=== PATIENT | male | born 1980 | race Two or more races ===

== ENCOUNTER 2018-01-03 22:36 | Emergency (ER) | payer BC ==
[~2018-01-03] VITALS: Ht 177.8 cm; Wt 97.5 kg
[~2018-01-03 22:36] MED LIST: NKM
[2018-01-03] MEDS ORDERED: Methocarbamol 750mg tab ORAL ONE (22:45)
[2018-01-03] MEDS ORDERED: LIDOCAINE700 M1 TP (22:49)
[2018-01-03] MEDS ORDERED: ROBAXIN-750750 MG PO (22:49)
[2018-01-03] MEDS ORDERED: IBUPROFEN600 MG ORAL (22:49)
--- NOTE | 2018-01-03 22:51 | Emergency Room Report ---
History of Present Illness General Chief Complaint: Pain Source: Patient Present Illness HPI 37-year-old male with pmhx of sciatica p/w back pain for 2 days. Pain is localized to L lower back, sharp in nature, radiating down leg. Movement worsens pain. There are no alleviating factors. Patient took pain medications with minimal relief. Patient has experienced this similar pain in the past. Denies trauma. Denies lower extremity weakness/numbness, no bowel/bladder retention or incontinence, saddle anesthesia. Denies fever, chills, abdominal pain, n/v, dysuria/hematuria. No history of IVDA Allergies: Coded Allergies: No Known Allergies (Unverified , 08/03/16) Patient History Past Medical History: see triage record Past Surgical History: none Pertinent Family History: none Reviewed Nursing Documentation: PMH: Agreed; PSxH: Agreed Review of Systems All Other Systems: negative except mentioned in HPI Physical Exam Vital Signs Date Time Temp Pulse Resp B/P (MAP) Pulse Ox O2 Delivery O2 Flow Rate FiO2 01/03/18 22:39 98.2 99 18 135/93 98 Room Air 98.2 Sp02 EP Interpretation: reviewed, normal General Appearance: alert, GCS 15, non-toxic, mild distress Head: normocephalic, atraumatic Eyes: bilateral eye normal inspection, bilateral eye PERRL, bilateral eye EOMI ENT: normal ENT inspection, normal pharynx, normal voice, moist mucus membranes Neck: normal inspection, full range of motion, supple Respiratory: normal inspection, lungs clear, normal breath sounds, no respiratory distress, no retraction, no wheezing, speaking full sentences, chest symmetrical Cardiovascular #1: normal inspection, regular rate, rhythm, no edema, normal capillary refill Cardiovascular #2: 2+ radial (R), 2+ radial (L) Gastrointestinal: normal inspection, non tender, soft, non-distended, no guarding Genitourinary: no CVA tenderness Musculoskeletal: other - Left sided lower lumbar paraspinal tenderness, no midline tenderness, full range of motion all extremities Neurologic: normal inspection, alert, oriented x3, responsive, motor strength/ tone normal, sensory intact, normal gait, speech normal Psychiatric: normal inspection, judgement/insight normal, memory normal Skin: normal inspection, normal color, no rash, warm/dry, well hydrated, normal turgor Medical Decision Making Diagnostic Impression: Primary Impression: Back pain ER Course 37-year-old male p/w back pain DDX: Likely musculoskeletal back pain vs. muscular strain vs. sciatica Lumbar fracture is unlikely given patients age, no midline tenderness, no history of trauma, and that patient is ambulatory. Therefore, at this time no imaging is indicated Serious diagnoses such as cord compression, epidural abscess is unlikely in this patient given the clinical scenario and abscess of neurological symptoms or findings. Patient appears nontoxic. Plan: Pain control ER course: Patient has remained nontoxic appearing and ambulatory in the ED. Pain improved w/ medications Disposition: Patient will be discharged to home with prescription of motrin and lidocaine patch and robaxin. Patient cautioned of the effects of robaxin including possible impairment of physical or mental abilities. Patient was instructed to refrain from operating machinery or driving. Patient is also cautioned on the GI effects of motrin and to take sparingly. Patient verbalized understanding. Strict precautions discussed with patient on when to emergently return to the ED which includes severe/worsening back pain, leg weakness/numbness, urinary retention/incontinence, fever or chills, which may indicate severe illness. Patient is to follow up with their PMD within 5 days. Patient agrees with plan. Please note that this Emergency Department Report was dictated using [employer] envelope maker hand technology software, occasionally this can lead to erroneous entry secondary to interpretation by the dictation equipment. Last Vital Signs Date Time Temp Pulse Resp B/P (MAP) Pulse Ox O2 Delivery O2 Flow Rate FiO2 01/03/18 22:39 98.2 99 18 135/93 98 Room Air 98.2 Disposition: HOME, SELF-CARE Condition: Improved Scripts Lidocaine (Lidocaine) 1 Each Adh..patch 700 MG TP EVERY 12 HOURS, #30 PATCH Prov: Niyah Wray M.D. 01/03/18 Ibuprofen* (MOTRIN*) 600 Mg Tablet 600 MG ORAL Q8H PRN for For Pain, #30 TAB 0 Refills Prov: Niyah Wray M.D. 01/03/18 Methocarbamol* (ROBAXIN-750*) 750 Mg Tablet 750 MG PO QID, #28 TAB 0 Refills Prov: Niyah Wray M.D. 01/03/18 Patient Instructions: Back Pain, Adult, [id number] Niyah Wray M.D. Jan 03, 2018 22:51
[2018-01-03 23:00] VITALS: BP 131/89
[2018-01-03] MEDS ORDERED: oxyCODONE HCL/Acetaminophen 5/325mg ORAL ONE (23:00)
[2018-01-03] MEDS ORDERED: Ketorolac 30mg Inj IM ONE (23:00)
[2018-01-03 23:35] VITALS: BP 131/89
== END 2018-01-03 23:35 | disposition home or self-care (01) ==
LOC: EMR 23:04
DX: M54.42 Lumbago with sciatica, left side (principal)
CPT/HCPCS: 96372; 99284; J1885

== ENCOUNTER 2018-01-05 09:40 | Emergency (ER) | payer BC ==
[~2018-01-05] VITALS: Ht 177.8 cm; Wt 97.5 kg
[~2018-01-05 09:40] MED LIST changes: +IBUPROFEN600 MG ORAL; +LIDOCAINE700 M1 TP; +ROBAXIN-750750 MG PO
[2018-01-05 10:08] VITALS: BP 148/68
[2018-01-05] MEDS ORDERED: NEURONTIN300 MG ORAL (10:36)
[2018-01-05] MEDS ORDERED: MEDROL4 M1 PO (10:37)
--- NOTE | 2018-01-05 10:41 | Emergency Room Report ---
History of Present Illness General Chief Complaint: Back Pain-No Injury Source: Patient Present Illness HPI 37-year-old male comes ER with sharp radiating left back pain relating to his left leg He reports he was here 2 days ago and was given muscle relaxants and ibuprofen without much relief He denies bowel bladder incontinence, denies weakness, fevers, IV drug use He does report that he's been unable to get comfortable and hasn't slept in today since this started Allergies: Coded Allergies: No Known Allergies (Unverified , 08/03/16) Patient History Past Medical History: see triage record Reviewed Nursing Documentation: PMH: Agreed; PSxH: Agreed Review of Systems All Other Systems: negative except mentioned in HPI Physical Exam Vital Signs Date Time Temp Pulse Resp B/P (MAP) Pulse Ox O2 Delivery O2 Flow Rate FiO2 01/05/18 09:49 97.8 85 20 148/68 99 Room Air 97.9 Sp02 EP Interpretation: reviewed, normal General Appearance: no apparent distress, alert, non-toxic Head: normocephalic Eyes: bilateral eye normal inspection, bilateral eye PERRL, bilateral eye EOMI ENT: normal ENT inspection, hearing grossly normal, normal pharynx, no angioedema, normal voice, moist mucus membranes Neck: normal inspection, full range of motion, supple, supple/symm/no masses Respiratory: chest non-tender, lungs clear, normal breath sounds, chest symmetrical, palpation of chest normal Cardiovascular #1: normal peripheral pulses, regular rate, rhythm Cardiovascular #2: 2+ radial (R), 2+ radial (L) Gastrointestinal: normal inspection, non tender, soft, no mass, no guarding, no rebound Rectal: deferred Genitourinary: normal inspection, no CVA tenderness Musculoskeletal: back normal, gait/station normal, normal range of motion, non- tender, no calf tenderness Neurologic: alert, responsive, 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 as tested, motor strength/tone normal, SLR negative - Positive on the left, sensory intact, speech normal Psychiatric: judgement/insight normal, memory normal, mood/affect normal, no suicidal/homicidal ideation Skin: normal color, no rash, warm/dry, normal turgor Lymphatic: no adenopathy Medical Decision Making Diagnostic Impression: Primary Impression: Sciatica ER Course Patient with history and physical very consistent with sciatica Will be given steroids and gabapentin this time as ibuprofen and muscle relaxants have not helped Recommend follow-up with his own primary care doctor for an orthopedic versus orthospine referral Last Vital Signs Date Time Temp Pulse Resp B/P (MAP) Pulse Ox O2 Delivery O2 Flow Rate FiO2 01/05/18 10:08 97.9 85 20 148/68 99 Room Air 97.9 Disposition: HOME, SELF-CARE Condition: Stable Scripts Methylprednisolone (MEDROL) 4 Mg Tab.ds.pk 4 MG PO DAILY for 6 Days, PACK Prov: MARGARET RODRIGUEZ M.D 01/05/18 Gabapentin (Neurontin) 300 Mg Capsule 300 MG ORAL THREE TIMES A DAY, #15 CAP 0 Refills Prov: MARGARET RODRIGUEZ M.D 01/05/18 Departure Forms: Return to Work Return to Work in (Days): 2 Patient Instructions: Sciatica MARGARET RODRIGUEZ M.D Jan 05, 2018 10:41
[2018-01-05] MEDS ORDERED: Ketorolac 30mg Inj IM ONE (11:00)
[2018-01-05 12:17] VITALS: BP 140/67
[2018-01-05 12:18] VITALS: BP 140/67
== END 2018-01-05 12:19 | disposition home or self-care (01) ==
LOC: EMR 11:08
DX: M54.32 Sciatica, left side (principal)
CPT/HCPCS: 96372; 99284; J1885; J8540